=== PATIENT | female | born 1995 | race Caucasian/White ===

== ENCOUNTER 2018-05-10 22:13 | Emergency (ER) | payer BC ==
[~2018-05-10] VITALS: Ht 170.2 cm; Wt 86.2 kg
[2018-05-10 22:21] VITALS: BP_SYST 110
[2018-05-10] MEDS ORDERED: CEPHALEXIN 500 MG CAPSULE PO ONE (23:30)
[2018-05-10] MEDS ORDERED: DIPH-TET-PERTUS Vaccine 0.5 ML VIAL (ADACEL) I.M. ONE (23:30)
[2018-05-10] MEDS ORDERED: SULFAMETHOXAZOLE/TRIMETHOPR DS 1 TABLET PO ONE (23:30)
[2018-05-10] MEDS ORDERED: BACITRACIN 1 GM OINT TP ONE (23:30)
[2018-05-11 00:18] VITALS: BP_SYST 112
== END 2018-05-11 00:18 | disposition home or self-care (01) ==
LOC: SED 22:13
DX: S91.332A Puncture wound without foreign body, left foot, initial encounter (principal); W18.42XA Slipping, tripping and stumbling without falling due to stepping into hole or opening, initial encounter; Y93.H2 Activity, gardening and landscaping; Y92.017 Garden or yard in single-family (private) house as the place of occurrence of the external cause; Y99.8 Other external cause status
CPT/HCPCS: 90715; 99284